=== PATIENT | male | born 1945 | race Caucasian/White ===

== ENCOUNTER 2016-08-03 20:42 | Emergency (ER) | payer MEDICARE ==
[~2016-08-03] VITALS: Ht 175.3 cm; Wt 72.6 kg
[2016-08-03] MEDS ORDERED: ATOR80TA PO (21:17)
[2016-08-03] MEDS ORDERED: TEST5GEL19 TD (21:17)
[2016-08-03] MEDS ORDERED: LAMO200T PO (21:17)
[2016-08-03] MEDS ORDERED: BACL10TA PO (21:17)
[2016-08-03] MEDS ORDERED: LORA2TAB PO (21:17)
[2016-08-03] MEDS ORDERED: QUET200T PO (21:17)
[2016-08-03] MEDS ORDERED: LISI-603 PO (21:17)
[2016-08-03] MEDS ORDERED: HYDR-3657 PO (21:17)
[2016-08-03] MEDS ORDERED: HYDR-3651 PO (21:17)
[2016-08-03] MEDS ORDERED: FELO5TAB12 PO (21:17)
[2016-08-03] MEDS ORDERED: TRAZ-147 PO (21:17)
[2016-08-03] MEDS ORDERED: CLOP75TA33 PO (21:17)
[2016-08-03] MEDS ORDERED: ZOLP10TA6 PO (21:17)
--- NOTE | 2016-08-03 21:39 | NUR ---
Patient discharged to home in stable conditon. Written and verbal after care instructions given. Patient verbalizes understanding of instructions.
== END 2016-08-03 21:39 | disposition home or self-care (01) ==
LOC: ER 20:47
DX: Z00.00 Encounter for general adult medical examination without abnormal findings (principal); Z88.2 Allergy status to sulfonamides; F32.9 Major depressive disorder, single episode, unspecified; I10 Essential (primary) hypertension
CPT/HCPCS: A4663

== ENCOUNTER 2020-06-13 20:56 | Inpatient (IN) | payer MEDICARE ==
[~2020-06-13] VITALS: Ht 172.7 cm; Wt 75.0 kg
[~2020-06-13 20:56] MED LIST: ATOR80TA PO; BACL10TA PO; CLOP75TA33 PO; FELO5TAB12 PO; HYDR-3974 PO; HYDR-3980 PO; LAMO200T10 PO; LISI20TA30 PO; LORA2TAB PO; QUET200T PO; TEST5GEL19 TD; TRAZ-257 PO; ZOLP10TA6 PO
--- NOTE | 2020-06-13 20:56 | NUR ---
Dr. Watkins at bedside for MSE.
[2020-06-13] MEDS ORDERED: KETOROLAC TROMETHAMINE 15 MG INJ IVP ONE (21:15)
--- NOTE | 2020-06-13 21:28 | NUR ---
Xray at bedside.
[2020-06-13 21:30] LABS: BASOPHILS % (AUTO) 0.2 % (0.0-2.0); HEMATOCRIT 35.2 % (36.7-47.1); HEMOGLOBIN 11.8 g/dL (12.5-16.3); LYMPHOCYTES # (AUTO) 0.7 K/uL (20.0-40.0); LYMPHOCYTES % (AUTO) 5.4 % (20.5-51.5); MEAN CORPUSCULAR HEMOGLOBIN 31.6 uug (23.8-33.4); MEAN CORPUSCULAR HGB CONC 34 g/dL (32.5-36.3); MEAN CORPUSCULAR VOLUME 94.2 fL (73.0-96.2); MONOCYTES # (AUTO) 0.6 K/uL (2.0-10.0); MONOCYTES % (AUTO) 5.2 % (0.0-11.0); NEUTROPHILS # (AUTO) 10.9 K/uL (1.8-8.9); NEUTROPHILS % (AUTO) 89.2 % (38.5-71.5); PLATELET COUNT (AUTO) 201 K/uL (152-348); RED BLOOD CELL COUNT(AUTO) 3.74 MIL/uL (4.06-5.63); WHITE BLOOD COUNT (AUTO) 12.2 K/uL (3.6-10.2)
[2020-06-13] MEDS ORDERED: KETOROLAC TROMETHAMINE 15 MG INJ ONE (21:31)
[2020-06-13 21:36] LABS: CARBON DIOXIDE 22 mmol/L (21-32); CHLORIDE 102 mmol/L (98-107); CREATININE 1.6 mg/dL (0.6-1.3); GLUCOSE 110 mg/dL (74-106); POTASSIUM 4.1 mmol/L (3.5-5.1); UREA NITROGEN, BLOOD 22 mg/dL (7-18)
[2020-06-13 21:37] LABS: ETHANOL < 3 MG/DL (0-0)
--- NOTE | 2020-06-13 21:37 | NUR ---
PT out of ER for CT.
[2020-06-13] MEDS ORDERED: MORPHINE SULFATE 2 MG/1 ML DISP.SYRIN ONE ×2 (21:38→22:24)
[2020-06-13] MEDS ORDERED: TDAP DIPH,PERTUSS,TET VAC/PF 0.5 ML DISP.SYRIN IM ONE ×2 (21:41→21:45)
[2020-06-13 21:42] LABS: ALANINE AMINOTRANSFERASE 25 U/L (16-63); ALKALINE PHOSPHATASE 87 U/L (50-136); ASPARTATE AMINOTRANSFERASE 28 U/L (15-37); BILIRUBIN,DIRECT 0.2 mg/dL (0.0-0.2); BILIRUBIN,TOTAL 0.6 mg/dL (0.2-1.0); TOTAL PROTEIN, SERUM 7.1 g/dL (6.4-8.2)
[2020-06-13] MEDS ORDERED: MORPHINE SULFATE 2 MG/1 ML DISP.SYRIN IV ONE (21:45)
[2020-06-13 21:50] LABS: ACETAMINOPHEN < 2.0 ug/mL (10-30)
--- NOTE | 2020-06-13 22:05 | NUR ---
Pt back to ER from CT.
[2020-06-13] MEDS ORDERED: HYDROMORPHONE 1 MG/1 ML DISP.SYRIN ONE (22:28)
[2020-06-13] MEDS ORDERED: HYDROMORPHONE 1 MG/1 ML DISP.SYRIN IV ONE (22:30)
--- NOTE | 2020-06-13 22:30 | NUR ---
Pt out of ER for CT. Accompanied patient to CT with pulse oximeter.
[2020-06-13] MEDS ORDERED: SWABABLE VALVE TRANSFER SET EA MC ONE (22:38)
[2020-06-13] MEDS ORDERED: IV NORMAL SALINE 250 ML IV ONE (22:39)
[2020-06-13] MEDS ORDERED: IOHEXOL 350 100 ML INFUS..BTL ONE (22:39)
--- NOTE | 2020-06-13 22:55 | NUR ---
Pt back to ER from CT.
[2020-06-13] MEDS ORDERED: LORAZEPAM 2 MG/1 ML VIAL ONE (23:28)
[2020-06-13] MEDS ORDERED: LORAZEPAM 2 MG/1 ML VIAL IV ONE (23:30)
[2020-06-13] MEDS ORDERED: KETAMINE HCL 500 MG/10 ML INJ IV ONE (23:30)
[2020-06-13 23:36] LABS: *BILIRUBIN,URIN NEGATIVE (NEGATIVE); *BLOOD, URINE NEGATIVE (NEGATIVE); *CLARITY,URINE CLEAR (CLEAR); *COLOR,URINE YELLOW (YELLOW); *KETONES,URINE NEGATIVE (NEGATIVE); *UROBILINOGEN,URINE 0.2 E.U./dl (NORMAL); LEUKOCYTE ESTERASE ,URINE NEGATIVE (NEGATIVE); NITRITE, URINE NEGATIVE (NEGATIVE); PH,URINE 6.5 (5.0-8.0); UGLUCOSE NEGATIVE (NEGATIVE)
[2020-06-13 23:44] LABS: BACTERIA,URINE NONE SEEN /HPF (NONE SEEN); RBC,URINE 0-3 /HPF (0-3); SQUAMOUS EPITHELIAL CELL,UR FEW /HPF (NONE SEEN); URINE AMORPHOUS URATE FEW /HPF; WBC,URINE 0-3 /HPF (0-3)
[2020-06-13 23:50] LABS: *AMPHETAMINE, URINE NEGATIVE (NEGATIVE); *CANNABINOID, URINE POSITIVE (NEGATIVE); *COCCAINE, URINE NEGATIVE (NEGATIVE); *OPIATE, URINE POSITIVE (NEGATIVE); *PHENCYCLIDINE SCREEN,URINE NEGATIVE (NEGATIVE)
--- NOTE | 2020-06-14 00:02 | NUR ---
Called [facility] to kerri Wesley NP
--- NOTE | 2020-06-14 00:10 | NUR ---
Dr. Watkins on panel call with Dwight Wesley NP. Patient accepted [facility], diagnosis: altered mental status.
--- NOTE | 2020-06-14 00:25 | NUR ---
Report given to Olimpia BRUCE tele.
[2020-06-14] MEDS ORDERED: Z GUARD REMEDY PASTE 57 GM TUBE TOP PRN (00:30)
[2020-06-14] MEDS ORDERED: MAGNESIUM HYDROXIDE 30 ML LIQUID UDC PO PRN (00:30)
[2020-06-14] MEDS ORDERED: MORPHINE SULFATE 2 MG/1 ML DISP.SYRIN IV PRN (00:30)
[2020-06-14] MEDS ORDERED: ONDANSETRON 4 MG/2 ML VIAL IV PRN (00:30)
--- NOTE | 2020-06-14 01:07 | NUR ---
RECEIVED PT FROM ER VIA [facility]. DX: ALTERED MENTAL STATUS/ ACUTE RENAL FAILURE. UNDER THE CARE OF SEMAJ ART. PT IN NO ACUTE DISTRESS. IV INTACT. [facility] ASSESSMENT DONE. DAUGHTERS OF THE PT GAVE HISTORY OF THE PT. ADMISSION PROCESS AND CARE PLAN INITIATED. BELONGING LIST DONE. SAFETY AND COMFORT PROVIDED. WILL CONTINUE TO MONITOR.
[2020-06-14 01:33] VITALS: BP 114/96
[2020-06-14] MEDS: IV NS 1000 ML 1,000 ML IV PRN ×2 (01:40→16:10)
[2020-06-14] MEDS: NICOTINE 21 MG/24HR PATCH TD SCH ×2 (02:22→08:21)
[2020-06-14 05:15] VITALS: BP 139/55
--- NOTE | 2020-06-14 05:38 | NUR ---
ORDERED NICOTINE PATCH 21MG DAILY FOR THE PT AT 0148H. PT SLEPT INTERMITTENTLY. PT IN NO ACUTE DISTRESS. IV INTACT. PRESCRIBED MEDICATION GIVEN AND PT TOLERATED IT WELL. SAFETY AND COMFORT PROVIDED. WILL CONTINUE TO MONITOR.
[2020-06-14 06:06] LABS: BASOPHILS % (AUTO) 0.3 % (0.0-2.0); EOSINOPHILS # (AUTO) 0.1 K/uL (0.0-0.7); EOSINOPHILS % (AUTO) 0.5 % (0.0-7.0); HEMATOCRIT 35.3 % (36.7-47.1); HEMOGLOBIN 12.2 g/dL (12.5-16.3); LYMPHOCYTES # (AUTO) 1.5 K/uL (20.0-40.0); LYMPHOCYTES % (AUTO) 15.4 % (20.5-51.5); MEAN CORPUSCULAR HEMOGLOBIN 32.7 uug (23.8-33.4); MEAN CORPUSCULAR HGB CONC 35 g/dL (32.5-36.3); MEAN CORPUSCULAR VOLUME 94.6 fL (73.0-96.2); MONOCYTES # (AUTO) 0.9 K/uL (2.0-10.0); MONOCYTES % (AUTO) 9.5 % (0.0-11.0); NEUTROPHILS # (AUTO) 7.2 K/uL (1.8-8.9); NEUTROPHILS % (AUTO) 74.3 % (38.5-71.5); PLATELET COUNT (AUTO) 204 K/uL (152-348); RED BLOOD CELL COUNT(AUTO) 3.74 MIL/uL (4.06-5.63); WHITE BLOOD COUNT (AUTO) 9.7 K/uL (3.6-10.2)
[2020-06-14 06:31] LABS: ALANINE AMINOTRANSFERASE 30 U/L (16-63); ALKALINE PHOSPHATASE 83 U/L (50-136); BILIRUBIN,TOTAL 0.7 mg/dL (0.2-1.0); CARBON DIOXIDE 26 mmol/L (21-32); CHLORIDE 104 mmol/L (98-107); CHOLESTEROL 123 mg/dL (<200); CREATININE 1.9 mg/dL (0.6-1.3); GLUCOSE 80 mg/dL (74-106); HDL CHOLESTEROL 63 mg/dL (40-60); MAGNESIUM 2.1 mg/dL (1.8-2.4); PHOSPHOROUS 3.5 mg/dL (2.5-4.9); POTASSIUM 4.4 mmol/L (3.5-5.1); TOTAL PROTEIN, SERUM 6.4 g/dL (6.4-8.2); TRIGLYCERIDES 55 MG/DL (30-150); UREA NITROGEN, BLOOD 24 mg/dL (7-18)
[2020-06-14] MEDS: LORAZEPAM 2 MG/1 ML VIAL IV PRN ×2 (06:34→14:52)
[2020-06-14 06:49] LABS: ASPARTATE AMINOTRANSFERASE 41 U/L (15-37)
--- NOTE | 2020-06-14 06:52 | NUR ---
Ativan prn given for pt agitation. Pt trying to get out of the bed and restless.Pt tolerated it well. Bed alarm on. Safety and comfort provided. Will endorse to incoming nurse.
--- NOTE | 2020-06-14 07:30 | NUR ---
Received the patient sitting on the vitaly chair. After an hour patient is trying to remove the table of the vitaly chair. Explained to him that the breakfast will be here pretty soon and that he needs the table. Call light placed within reach.
[2020-06-14] MEDS: CLOPIDOGREL 75 MG TABLET PO SCH (08:21)
[2020-06-14] MEDS: BACLOFEN 10 MG TABLET PO SCH ×2 (08:21→17:28)
[2020-06-14] MEDS: LISINOPRIL 20 MG TABLET PO SCH (08:26)
[2020-06-14] MEDS: LAMOTRIGINE 200 MG TABLET PO SCH ×2 (08:29→17:28)
[2020-06-14] MEDS: FELODIPINE 2.5 MG TAB.SR.24H PO SCH (08:40)
--- NOTE | 2020-06-14 08:59 | NUR ---
Patient wanted to go back to bed, assisted the patient with bed alarm on and in locked position at the lowest position . Call light placed within reach. All due meds given as ordered. Will continue to monitor.
[2020-06-14] MEDS ORDERED: FELODIPINE 5 MG PO SCH (09:00)
[2020-06-14] MEDS: HYDROCODONE/APAP 5-325MG TABLET PO PRN ×2 (09:08→16:19)
[2020-06-14 11:45] LABS: *BILIRUBIN,URIN NEGATIVE (NEGATIVE); *COLOR,URINE YELLOW (YELLOW); *KETONES,URINE NEGATIVE (NEGATIVE); *UROBILINOGEN,URINE 0.2 E.U./dl (NORMAL); LEUKOCYTE ESTERASE ,URINE NEGATIVE (NEGATIVE); NITRITE, URINE NEGATIVE (NEGATIVE); PH,URINE 6.5 (5.0-8.0); UGLUCOSE NEGATIVE (NEGATIVE)
[2020-06-14 11:50] LABS: *BLOOD, URINE TRACE (NEGATIVE); *CREATININE,URINE 91.5 mg/dL (30-125); *URINE TOTAL PROTEIN RANDOM 50.7 mg/dL (<150/24HR)
[2020-06-14 11:55] VITALS: BP 119/63
[2020-06-14] MEDS ORDERED: RIVA2.5T PO (13:03)
[2020-06-14 15:09] LABS: *CLARITY,URINE CLEAR (CLEAR); BACTERIA,URINE NONE SEEN /HPF (NONE SEEN); RBC,URINE 0-3 /HPF (0-3); SQUAMOUS EPITHELIAL CELL,UR NONE SEEN /HPF (NONE SEEN); WBC,URINE 0-3 /HPF (0-3)
[2020-06-14 16:00] VITALS: BP 147/57
--- NOTE | 2020-06-14 16:31 | NUR ---
Family came to visit. Patient sitting on the Nina chair after an hour assisted to the bathroom and assisted back to Nina chair. US of the kidney ans US Duplex renal will be done angel. for patient needs to be on NPO post midnight. Will endorse accordingly. Call light within reach.
[2020-06-14] MEDS: TRAZODONE 100 MG TABLET PO SCH (17:27)
[2020-06-14] MEDS: QUETIAPINE FUMARATE 200 MG TABLET PO SCH (17:28)
[2020-06-14] MEDS ORDERED: QUETIAPINE FUMARATE 200 MG TABLET PO SCH (18:00)
--- NOTE | 2020-06-14 19:30 | NUR ---
RECEIVED PT IN NO ACUTE DISTRESS. IV INTACT. SAFETY AND COMFORT PROVIDED. WILL CONTINUE TO MONITOR.
[2020-06-14 20:06] VITALS: BP 117/51
[2020-06-14] MEDS: ACETAMINOPHEN 325 MG TABLET PO PRN (20:06)
[2020-06-14] MEDS ORDERED: ATORVASTATIN 40 MG TABLET PO SCH (21:00)
[2020-06-15 00:03] VITALS: BP 131/68
--- NOTE | 2020-06-15 03:36 | NUR ---
trains service conductor ordered straight cath prn for >350ml because pt retaining 478ml when staff did bladder scan. When about to do straight cath pt voided on his own .
[2020-06-15 04:06] VITALS: BP 101/82
[2020-06-15] MEDS: HYDROCODONE/APAP 5-325MG TABLET PO PRN ×2 (04:40→14:55)
--- NOTE | 2020-06-15 05:53 | NUR ---
Pt slept intermittently. Pt tries to get out of the bed several times to go to restroom. Pt assisted to the restroom. [place] prn given at 0440h for lower back pain. Pt tolerated it well. Safety and comfort provided. Will endorse to incoming nurse for continuity of care.
[2020-06-15 05:59] LABS: BASOPHILS % (AUTO) 0.3 % (0.0-2.0); EOSINOPHILS # (AUTO) 0.1 K/uL (0.0-0.7); EOSINOPHILS % (AUTO) 0.9 % (0.0-7.0); HEMATOCRIT 36.1 % (36.7-47.1); HEMOGLOBIN 12.2 g/dL (12.5-16.3); LYMPHOCYTES # (AUTO) 1.3 K/uL (20.0-40.0); LYMPHOCYTES % (AUTO) 14.2 % (20.5-51.5); MEAN CORPUSCULAR HEMOGLOBIN 31.6 uug (23.8-33.4); MEAN CORPUSCULAR HGB CONC 34 g/dL (32.5-36.3); MEAN CORPUSCULAR VOLUME 93.6 fL (73.0-96.2); MONOCYTES # (AUTO) 0.6 K/uL (2.0-10.0); MONOCYTES % (AUTO) 6.9 % (0.0-11.0); NEUTROPHILS # (AUTO) 6.9 K/uL (1.8-8.9); NEUTROPHILS % (AUTO) 77.7 % (38.5-71.5); PLATELET COUNT (AUTO) 163 K/uL (152-348); RED BLOOD CELL COUNT(AUTO) 3.85 MIL/uL (4.06-5.63); WHITE BLOOD COUNT (AUTO) 8.9 K/uL (3.6-10.2)
[2020-06-15 06:27] LABS: ALANINE AMINOTRANSFERASE 46 U/L (16-63); ALKALINE PHOSPHATASE 81 U/L (50-136); ASPARTATE AMINOTRANSFERASE 77 U/L (15-37); BILIRUBIN,TOTAL 0.7 mg/dL (0.2-1.0); CARBON DIOXIDE 24 mmol/L (21-32); CHLORIDE 108 mmol/L (98-107); CREATINE KINASE, TOTAL 1789 U/L (39-308); CREATININE 1.6 mg/dL (0.6-1.3); GLUCOSE 116 mg/dL (74-106); MAGNESIUM 1.9 mg/dL (1.8-2.4); PHOSPHOROUS 2.9 mg/dL (2.5-4.9); POTASSIUM 3.8 mmol/L (3.5-5.1); TOTAL PROTEIN, SERUM 6.6 g/dL (6.4-8.2); UREA NITROGEN, BLOOD 22 mg/dL (7-18)
--- NOTE | 2020-06-15 08:00 | NUR ---
RECEIVED PATIENT IN BED AWAKE ALERT AND VERSIVE WITH IVF IN PROGRESS ORDERED DENIES PAIN OR DISCOMFORTS AT THIS ON ROOM AIR WITH NO S/S OF SOB AT THIS TIME.CALL LIGHTS AND PERSONAL BELONGINGS ARE WITHIN EASY REACH MADE COMFORTABLE WILL CONTINUE TO OBSERVE.
--- NOTE | 2020-06-15 08:28 | NUR ---
PATIENT SEEN AND EXAMINED BY DR PEDERSEN WITH NEW ORDERS AND NOTED.
--- NOTE | 2020-06-15 09:45 | NUR ---
PATIENT SEEN BY THE PHYSICAL THERAPY AND HE AMBULATED WITH THE FRONT WHEEL WALKER ENDURANCE WAS GOOD.
[2020-06-15] MEDS: NICOTINE 21 MG/24HR PATCH TD SCH (10:51)
[2020-06-15] MEDS: CLOPIDOGREL 75 MG TABLET PO SCH (10:52)
[2020-06-15] MEDS: BACLOFEN 10 MG TABLET PO SCH ×2 (10:52→17:15)
[2020-06-15] MEDS: LAMOTRIGINE 200 MG TABLET PO SCH ×2 (10:52→17:15)
[2020-06-15] MEDS: LISINOPRIL 20 MG TABLET PO SCH (10:53)
[2020-06-15] MEDS: FELODIPINE 2.5 MG TAB.SR.24H PO SCH (11:00)
[2020-06-15] MEDS ORDERED: ALBUTEROL SULFATE 2.5 MG/3 ML NEBU NEB PRN (11:30)
[2020-06-15 11:44] VITALS: BP 153/78
[2020-06-15] MEDS: IV 1/2NS 1000 ML 1,000 ML IV PRN (12:54)
--- NOTE | 2020-06-15 14:45 | NUR ---
PATIENT C/O GENERAL PAIN MEDICATED WITH NORCO ORDERED MADE COMFORTABLE WILL CONTINUE TO OBSERVE.
[2020-06-15] MEDS: hydrALAZINE HCL 25 MG TABLET PO PRN (14:50)
[2020-06-15 16:00] VITALS: BP 152/76
--- NOTE | 2020-06-15 16:00 | NUR ---
PATIENT IS ALERT TO SELF WITH EPISODES OF CONFUSSION AND DISORIENTATION ATTEMPTS TO GET OUT OF BED WITH BED ALARM IN USE CHECKED FREQUENTLY TO PREVENT FALL WILL CONTINUE TO OBSERVE.
[2020-06-15] MEDS ORDERED: Medication Not On Formulary EA (Rivaroxaban (Xarelto) 2.5 MG) PO SCH (17:00)
[2020-06-15] MEDS: TRAZODONE 100 MG TABLET PO SCH (17:14)
[2020-06-15] MEDS: QUETIAPINE FUMARATE 200 MG TABLET PO SCH (17:14)
[2020-06-15] MEDS: RIVAROXABAN 10 MG TABLET PO SCH (17:15)
--- NOTE | 2020-06-15 18:00 | NUR ---
SECOND IV LINE INSERTED TO HIS LEFT FOREARM GAUGE 20 DUE TO THE FACT THAT HE IS CONSTANTLY USING HIS RIGHT ARM AND IV CONSTANTLY BEEPING VERY POSITIONAL WRAPPED HIS LEFT ARM WITH KIRLIX.RESTING IN BED SEEMS QUIET AT THIS TIME.
--- NOTE | 2020-06-15 18:29 | NUR ---
XARELTO GIVEN ORDERED NO S/S OF BLEEDING AT THIS TIME.
--- NOTE | 2020-06-15 19:30 | NUR ---
Pt received in bed resting. Patient is awake AOX2, daughter at bedside. Denies pain or SOB at this time. He was assisted in ambulation to the restroom, tolerated well. IV site intact. SR on monitor. Report given to Lin BRUCE to take over, no other issues or concerns at this time.
[2020-06-15 20:09] VITALS: BP 118/58
[2020-06-15] MEDS: ATORVASTATIN 40 MG TABLET PO SCH (20:25)
--- NOTE | 2020-06-15 21:35 | NUR ---
received patient sleeping soundly , easily arousable , on RA, iv running at 70 ml 1/2 ns on left hand , continent , denies distress at this time
[2020-06-15] MEDS: LORAZEPAM 2 MG/1 ML VIAL IV PRN (23:09)
[2020-06-16 00:03] VITALS: BP 90/70
[2020-06-16] MEDS: HYDROCODONE/APAP 5-325MG TABLET PO PRN ×2 (00:04→08:35)
--- NOTE | 2020-06-16 03:56 | NUR ---
VERY RESTLESS KEEPS GETTING OUT OF BED , UNSTEADY GAIT , ABLE TO FOLLOW SIMPLE COMMAND BUT CONFUSED , ONLY ORIENTED TO NAME
[2020-06-16 04:12] VITALS: BP 131/52
--- NOTE | 2020-06-16 05:52 | NUR ---
awake , restless , able to follow simple command and answer appropriately with periods of confusion , on ra. iv intact right hand with 1/s ns at 70 ml running
--- NOTE | 2020-06-16 07:30 | NUR ---
received change of shift report, pt awake alert and oriented x3 although when asked simple questions pt seems confused. pt on tele monitor, NSR on room air, no signs of distress, pain reported 10/05, medications given as prescribed, pt ambulatory with assist. IV access on the left FA 20g IVF infusing at 1/2 NS @70cc. bed in low and locked position, sitter at bedside, will continue with plan of care.
[2020-06-16] MEDS: BACLOFEN 10 MG TABLET PO SCH ×2 (08:34→17:17)
[2020-06-16] MEDS: RIVAROXABAN 10 MG TABLET PO SCH ×2 (08:35→17:16)
[2020-06-16] MEDS: NICOTINE 21 MG/24HR PATCH TD SCH (08:36)
[2020-06-16] MEDS: FELODIPINE 2.5 MG TAB.SR.24H PO SCH (08:41)
[2020-06-16] MEDS: FLUTICASONE/VILANTEROL 1 EACH BLST.W.DEV INH SCH (08:42)
[2020-06-16] MEDS: CLOPIDOGREL 75 MG TABLET PO SCH (09:25)
[2020-06-16] MEDS: LAMOTRIGINE 200 MG TABLET PO SCH ×2 (09:27→17:17)
--- NOTE | 2020-06-16 09:30 | NUR ---
pt was able to walk with physical therapy, pt requires assistance and walker. pt tolerated well
[2020-06-16] MEDS: IV 1/2NS 1000 ML 1,000 ML IV PRN (09:55)
--- NOTE | 2020-06-16 10:00 | NUR ---
spoke with daughter, [place], this morning, Dr. Peng will also give family a call.
[2020-06-16 12:00] VITALS: BP 142/82
--- NOTE | 2020-06-16 12:00 | NUR ---
pt downgraded from telemetry status to medical/surgical. will continue to monitor.
[2020-06-16 16:00] VITALS: BP 160/65
[2020-06-16] MEDS: TRAZODONE 100 MG TABLET PO SCH (17:17)
[2020-06-16] MEDS: QUETIAPINE FUMARATE 200 MG TABLET PO SCH (17:17)
--- NOTE | 2020-06-16 18:25 | NUR ---
pt watching tv resting, sitter at bedside, a/o x3 pt very cooperative,on room air, no signs of distress no reports of pain at this time. pt able to ambulate with assist with walker. yo has BRP, IV access on the left FA 20g running 1/2 NS at 70cc. bed in low and locked position, call light within reach, fall and safety precautions in place. will endorse to oncoming nurse.
--- NOTE | 2020-06-16 18:45 | NUR ---
pt family at bedside, pt sometimes confused. Dr Lenny Tucker pt PCP educational assistant teacher called earlier to ask for updates on pt, informed her that I would have to get clearance from the daughter before giving any updates, gave the educational assistant teacher the hospitalist number to call. Discussed with daughter at bedside if she wanted Dr. Tucker to be involved, daughter disclosed that she is not happy with how he has been managing her dads health and she does not want Dr. Tucker to have any updates on the pt. will endorse to oncoming nurse.
--- NOTE | 2020-06-16 19:45 | NUR ---
Patient awake but forgetful, [place], no complain of pain at this time, patient unsteady risk for fall and injury, cont on 1;1 sitter for safety. cont to monitor.
[2020-06-16 20:00] VITALS: BP 117/52
[2020-06-16] MEDS: ATORVASTATIN 40 MG TABLET PO SCH (20:41)
[2020-06-16] MEDS: LISINOPRIL 5 MG TABLET PO SCH (20:46)
[2020-06-17] MEDS: ACETAMINOPHEN 325 MG TABLET PO PRN (00:23)
[2020-06-17] MEDS: LORAZEPAM 2 MG/1 ML VIAL IV PRN (01:02)
--- NOTE | 2020-06-17 01:10 | NUR ---
Patient alert but forgetful, with episode of restlessness, up and down from the bed, complain of unable to sleep and anxiety, medicated with ativan 1mg iv, plus the tylenol 650mg for pain and discomfort. patient on 1;1 sitter due risk for fall and injury, patient voiding adequately, cont to monitor.
[2020-06-17] MEDS: IV 1/2NS 1000 ML 1,000 ML IV PRN (01:43)
[2020-06-17 04:00] VITALS: BP 141/61
--- NOTE | 2020-06-17 04:45 | NUR ---
Report given to Jumana agarwal.
[2020-06-17 05:58] LABS: BASOPHILS % (AUTO) 0.2 % (0.0-2.0); EOSINOPHILS # (AUTO) 0.1 K/uL (0.0-0.7); EOSINOPHILS % (AUTO) 0.7 % (0.0-7.0); HEMATOCRIT 34.4 % (36.7-47.1); HEMOGLOBIN 11.7 g/dL (12.5-16.3); LYMPHOCYTES # (AUTO) 0.8 K/uL (20.0-40.0); LYMPHOCYTES % (AUTO) 7.6 % (20.5-51.5); MEAN CORPUSCULAR HEMOGLOBIN 31.8 uug (23.8-33.4); MEAN CORPUSCULAR HGB CONC 34 g/dL (32.5-36.3); MEAN CORPUSCULAR VOLUME 93.6 fL (73.0-96.2); MONOCYTES # (AUTO) 0.6 K/uL (2.0-10.0); MONOCYTES % (AUTO) 5.7 % (0.0-11.0); NEUTROPHILS # (AUTO) 9.1 K/uL (1.8-8.9); NEUTROPHILS % (AUTO) 85.8 % (38.5-71.5); PLATELET COUNT (AUTO) 152 K/uL (152-348); RED BLOOD CELL COUNT(AUTO) 3.68 MIL/uL (4.06-5.63); WHITE BLOOD COUNT (AUTO) 10.6 K/uL (3.6-10.2)
[2020-06-17 06:04] LABS: CARBON DIOXIDE 26 mmol/L (21-32); CHLORIDE 105 mmol/L (98-107); CREATININE 1.6 mg/dL (0.6-1.3); GLUCOSE 112 mg/dL (74-106); MAGNESIUM 1.9 mg/dL (1.8-2.4); PHOSPHOROUS 3.4 mg/dL (2.5-4.9); POTASSIUM 3.8 mmol/L (3.5-5.1); UREA NITROGEN, BLOOD 16 mg/dL (7-18)
--- NOTE | 2020-06-17 06:34 | NUR ---
Slept about 3 hours the whole shift per sitter. Remains AOx2-3 with periods of forgetfulness. Denies any pain or SOB at this time. Calm and cooperative. 1:1 sitter at bedside. IV site on left AC intact and patent. IVF infusing. Needs attended to and met. Safety measure maintained.
[2020-06-17] MEDS: HYDROCODONE/APAP 5-325MG TABLET PO PRN (07:07)
--- NOTE | 2020-06-17 07:30 | NUR ---
pt in bed resting, awake alert and oriented, pt on room air, no signs of distress, no reports of pain noted at this time, pt able to ambulate with assistance, sitter at bedside, bed in low and locked position, safety and fall precautions in place. IV on the left FA 20g, 1/2 NS running at 70cc. will continue with plan of care.
[2020-06-17 08:00] VITALS: BP 101/82
[2020-06-17] MEDS: RIVAROXABAN 10 MG TABLET PO SCH (08:16)
[2020-06-17] MEDS: BACLOFEN 10 MG TABLET PO SCH (08:16)
[2020-06-17] MEDS: CLOPIDOGREL 75 MG TABLET PO SCH (08:16)
[2020-06-17] MEDS: LAMOTRIGINE 200 MG TABLET PO SCH (08:17)
[2020-06-17] MEDS: FLUTICASONE/VILANTEROL 1 EACH BLST.W.DEV INH SCH (08:18)
[2020-06-17] MEDS: FELODIPINE 2.5 MG TAB.SR.24H PO SCH (08:18)
[2020-06-17] MEDS: LISINOPRIL 5 MG TABLET PO SCH (08:18)
[2020-06-17] MEDS: NICOTINE 21 MG/24HR PATCH TD SCH (08:19)
[2020-06-17] MEDS ORDERED: ATOR40TA PO (11:54)
[2020-06-17] MEDS ORDERED: ALBU6.7H9 INH (11:54)
[2020-06-17] MEDS ORDERED: MULT-594 PO (11:54)
[2020-06-17] MEDS ORDERED: FLUT1BLS INH (11:54)
[2020-06-17] MEDS ORDERED: LISI-782 PO (11:54)
[2020-06-17] MEDS ORDERED: NICO-625 TD (11:54)
[2020-06-17] MEDS ORDERED: QUET200T PO (11:54)
[2020-06-17 12:59] VITALS: BP 230/65
[2020-06-17] MEDS: hydrALAZINE HCL 25 MG TABLET PO PRN (12:59)
--- NOTE | 2020-06-17 14:20 | NUR ---
pt discharged home with daughters, pt left via wheelchair, all instructions explained to daughters and patient. pt left with all belongings, paperwork. pt ambulatory with assist, on room air, photos taken of old scab on right arm. IV and ID band removed prior to discharge. pt cooperative, vitals BP 166/63, HR 77, temp 98.0.
[2020-06-22 04:09] LABS: A/G RATIO 1.3; ALBUMIN 3.5; ALPHA-1-GLOBULIN 0.3; ALPHA-2-GLOBULIN 0.6; BETA GLOBULIN 0.9; GAMMA GLOBULIN 0.8; GLOBULIN, TOTAL 2.6; M-SPIKE NOT OBSERVED
== END 2020-06-17 14:20 | disposition home health service (06) | DRG 91 ==
LOC: ER 20:56 → TELE3 06-14 00:31 → MEDSURG3 06-16 12:05
PROVIDERS: ATTEND Internal Medicine
DX: G92 Toxic encephalopathy (principal); N17.0 Acute kidney failure with tubular necrosis; M62.82 Rhabdomyolysis; I71.4 Abdominal aortic aneurysm, without rupture; Z88.2 Allergy status to sulfonamides; E78.5 Hyperlipidemia, unspecified; Z87.891 Personal history of nicotine dependence; M19.011 Primary osteoarthritis, right shoulder; I25.10 Atherosclerotic heart disease of native coronary artery without angina pectoris; I12.9 Hypertensive chronic kidney disease with stage 1 through stage 4 chronic kidney disease, or unspecified chronic kidney disease; I73.9 Peripheral vascular disease, unspecified; K44.9 Diaphragmatic hernia without obstruction or gangrene; W01.0XXA Fall on same level from slipping, tripping and stumbling without subsequent striking against object, initial encounter; K57.30 Diverticulosis of large intestine without perforation or abscess without bleeding; F32.9 Major depressive disorder, single episode, unspecified; Y93.9 Activity, unspecified; Y92.009 Unspecified place in unspecified non-institutional (private) residence as the place of occurrence of the external cause; Z20.822 Contact with and (suspected) exposure to COVID-19; M19.012 Primary osteoarthritis, left shoulder; F41.9 Anxiety disorder, unspecified; G89.4 Chronic pain syndrome; K21.9 Gastro-esophageal reflux disease without esophagitis; K56.41 Fecal impaction; N18.2 Chronic kidney disease, stage 2 (mild); Z79.891 Long term (current) use of opiate analgesic; I35.8 Other nonrheumatic aortic valve disorders; J44.9 Chronic obstructive pulmonary disease, unspecified; T40.2X5A Adverse effect of other opioids, initial encounter; Y92.098 Other place in other non-institutional residence as the place of occurrence of the external cause; F12.90 Cannabis use, unspecified, uncomplicated
CPT/HCPCS: 36415; 70030-TC; 70450; 71045; 72125; 83605; 83735; 83970; 84100; 84155; 84156; 84165; 84300; 84443; 85025; 85730; 87040; 87086; 90715; 93005; 93307; A4663; G0378; G0480; J1170; J1885; J2060; J2270; J3490; J7030; J7050; Q9967